=== PATIENT | female | born 2000 | race Two or more races ===

== ENCOUNTER 2022-01-04 23:09 | Emergency (ER) | payer OTHER ==
[~2022-01-04] VITALS: Ht 160 cm; Wt 101.6 kg
[2022-01-04] MEDS ORDERED: ZOFRAN8 MG PO (23:25)
[2022-01-05] MEDS ORDERED: CEPHALEXIN500 MG PO (02:43)
[2022-01-05] MEDS ORDERED: MONISTAT 315 GM VAG (02:43)
== END 2022-01-05 03:00 ==
LOC: ER 23:09
DX: O99.891 Other specified diseases and conditions complicating pregnancy (principal); R30.0 Dysuria; Z3A.08 8 weeks gestation of pregnancy

== ENCOUNTER 2023-01-06 21:18 | Emergency (ER) | payer OTHER ==
[~2023-01-06] VITALS: Ht 160 cm; Wt 102.1 kg
[~2023-01-06 21:18] MED LIST: CEPHALEXIN500 MG PO; MONISTAT 315 GM VAG; ZOFRAN8 MG PO
[2023-01-06] MEDS ORDERED: ZITHROMAX500 MG PO (23:37)
== END 2023-01-07 00:06 | disposition home or self-care (01) ==
LOC: ER 21:18
DX: H66.93 Otitis media, unspecified, bilateral (principal); J06.9 Acute upper respiratory infection, unspecified